=== PATIENT | female | born 1935 | race Hispanic/Latino ===

== ENCOUNTER → 2018-02-21 | Outpatient (CLI) | payer MEDICARE | END | disposition home or self-care (01) | LOC: RAH 08:36 | PROVIDERS: ATTEND Internal Medicine | DX: R07.89 Other chest pain (principal) | CPT/HCPCS: 71046 ==

== ENCOUNTER → 2018-04-06 | Outpatient (CLI) | payer MEDICARE | END | disposition home or self-care (01) | LOC: RAH 13:37 | PROVIDERS: ATTEND Internal Medicine | DX: E04.1 Nontoxic single thyroid nodule (principal) | CPT/HCPCS: 76536 ==

== ENCOUNTER → 2019-01-25 | Outpatient (CLI) | payer MEDICARE | END | disposition home or self-care (01) | LOC: RAH 10:31 | PROVIDERS: ATTEND Internal Medicine | DX: J84.10 Pulmonary fibrosis, unspecified (principal); M47.815 Spondylosis without myelopathy or radiculopathy, thoracolumbar region; Z96.89 Presence of other specified functional implants; Z98.890 Other specified postprocedural states | CPT/HCPCS: 71046 ==

== ENCOUNTER → 2019-03-20 | Outpatient (CLI) | payer MEDICARE | END | disposition home or self-care (01) | LOC: RAH 13:20 | PROVIDERS: ATTEND Clinical Nurse Specialist Family Health | DX: M41.9 Scoliosis, unspecified (principal); M19.90 Unspecified osteoarthritis, unspecified site | CPT/HCPCS: 71100 ==

== ENCOUNTER → 2022-04-20 | Outpatient (CLI) | payer OTHER | END | disposition home or self-care (01) | LOC: SHCH 07:57 | PROVIDERS: ATTEND Internal Medicine Cardiovascular Disease | DX: I08.0 Rheumatic disorders of both mitral and aortic valves (principal) | CPT/HCPCS: 93306 ==

== ENCOUNTER → 2022-05-20 | Outpatient (CLI) | payer OTHER | END | disposition home or self-care (01) | LOC: SHCH 08:46 | PROVIDERS: ATTEND Internal Medicine Cardiovascular Disease | DX: I70.202 Unspecified atherosclerosis of native arteries of extremities, left leg (principal); I25.5 Ischemic cardiomyopathy; I65.23 Occlusion and stenosis of bilateral carotid arteries; Z95.828 Presence of other vascular implants and grafts; Z89.611 Acquired absence of right leg above knee | CPT/HCPCS: 93880; 93925 ==

== ENCOUNTER → 2022-07-16 | Outpatient (CLI) | payer OTHER | END | disposition home or self-care (01) | LOC: RAH 16:08 | PROVIDERS: ATTEND Internal Medicine | DX: S22.32XA Fracture of one rib, left side, initial encounter for closed fracture (principal); R07.81 Pleurodynia; X58.XXXA Exposure to other specified factors, initial encounter; Y93.89 Activity, other specified; Y92.89 Other specified places as the place of occurrence of the external cause; Y99.8 Other external cause status | CPT/HCPCS: 71110 ==

== ENCOUNTER → 2023-04-08 | Outpatient (CLI) | payer OTHER ==
[~2023-04-08] MED LIST: REGADENOSON 0.4 MG/5 ML PF SYG IVP ONE
== END | disposition home or self-care (01) ==
LOC: SHCH 07:50
PROVIDERS: ATTEND Internal Medicine Cardiovascular Disease
DX: R07.9 Chest pain, unspecified (principal); I51.7 Cardiomegaly
CPT/HCPCS: 78452; 96374; 93017; J2785; A9500 ×2

== ENCOUNTER 2023-05-23 07:17 | Day surgery (SDC) | payer OTHER ==
[2023-05-20 10:16] LABS: BASOPHILS # (AUTO) 0.05 K/uL (0.00-0.20); BASOPHILS % (AUTO) 0.5 % (0.0-5.0); EOSINOPHILS % (AUTO) 3.8 % (0.0-8.0); HEMATOCRIT 40.9 % (36-48); LYMPHOCYTES # (AUTO) 2.8 K/uL (1.0-4.8); LYMPHOCYTES % (AUTO) 26.1 % (21.0-51.0); MEAN CORPUSCULAR HGB CONC 32.8 g/dL (32.0-36.0); MEAN CORPUSCULAR VOLUME 91.7 fL (79-99); MONOCYTES # (AUTO) 1.3 K/uL (0.1-1.0); MONOCYTES % (AUTO) 12.1 % (3.0-13.0); NEUTROPHILS % (AUTO) 56.5 % (40.0-77.0); PLATELET COUNT (AUTO) 234 K/uL (130-400); RED BLOOD CELL COUNT(AUTO) 4.46 MIL/uL (4.00-5.50); RED CELL DISTRIBUTION WIDTH 15.2 % (11.0-15.5); WHITE BLOOD COUNT (AUTO) 10.5 K/uL (4.8-10.8)
[2023-05-20 10:25] LABS: CREATININE 0.6 mg/dL (0.5-1.5); POTASSIUM 4.5 mmol/L (3.5-5.1)
[2023-05-20 10:26] LABS: INR 0.95 (0.85-1.15); PROTHROMBIN TIME 11.1 SEC (9.6-11.6)
[2023-05-20 10:28] LABS: PARTIAL THROMBOPLASTIN TIME 29.9 SEC (26.3-35.5)
[2023-05-20 10:35] VITALS: BP_SYST 140; BP_SYST 202; BP_SYST 212; BP_DIAS 64; BP_DIAS 79; PULSE 67; RESP 18
[2023-05-20 10:39] LABS: BILIRUBIN,URINE NEGATIVE (NEGATIVE); COLOR,URINE YELLOW (YELLOW); GLUCOSE, URINE (UA) NEGATIVE (NEGATIVE); KETONES,URINE NEGATIVE (NEGATIVE); LEUKOCYTE ESTERASE ,URINE NEGATIVE Leu/uL (NEGATIVE); NITRATE,URINE NEGATIVE (NEGATIVE); OCCULT BLOOD,URINE NEGATIVE (NEGATIVE); PH,URINE 7.5 (5.0-8.0); PROTEIN,URINE NEGATIVE (NEGATIVE); UROBILINOGEN,URINE 0.2 mg/dL (0.2-1.0)
[2023-05-20 10:42] LABS: ADD UA MICROSCOPIC NO; APPEARANCE,URINE A (CLEAR)
[2023-05-20 10:51] LABS: B-TYPE NATRIURETIC PEPTIDE 104 pg/mL (0-100)
[~2023-05-23] VITALS: Ht 157.5 cm; Wt 63.0 kg
[2023-05-23] VITALS (11 sets, daily range): BP systolic 131–173; BP diastolic 54–75; PULSE 60–86; RESP 9–18
[~2023-05-23 07:17] MED LIST changes: +ALBU6.7H14 IH; +ASPI-1197 PO; +ATOR40TA71 PO; +BIOT5000 PO; +CARV25TA PO; +CHOL500051 PO; +CITRACAL PO; +CLOP75TA32 PO; +FOLIC ACID PO; +GABA-529 PO; +LOSA50TA64 PO; +MAGN500C4 PO; +MONT-39 PO; -REGADENOSON 0.4 MG/5 ML PF SYG IVP ONE; +SPIR25TA6 PO; +VITA-348 PO
[2023-05-23] MEDS: 0.9%NACL 1000ML 1,000 ML IV ONE (08:01)
[2023-05-23] MEDS ORDERED: LIDOCAINE HCL 400MG/20ML VIAL ONE (10:54)
[2023-05-23] MEDS ORDERED: MEPERIDINE-PF 25 MG/ML SYG ONE (10:54)
[2023-05-23] MEDS ORDERED: MIDAZOLAM HCL 1 MG/ML 2ML VIAL ONE (10:55)
[2023-05-23] MEDS ORDERED: HEPARIN 10,000 UNIT/10ML (1,000 UNIT/ML) VIAL ONE (10:55)
[2023-05-23] MEDS ORDERED: IOHEXOL 350 MG/ML 100ML INFUS..BTL IV ONE (10:55)
[2023-05-23] MEDS ORDERED: SODIUM BICARB 50MEQ 50ML VIAL 50 ML ONE (11:07)
[2023-05-23] MEDS ORDERED: 0.9%NACL 1000ML 1,000 ML IV SCH (13:00)
== END 2023-05-23 18:15 | disposition home or self-care (01) ==
LOC: DAH 07:17
PROVIDERS: ATTEND Internal Medicine Cardiovascular Disease
DX: I25.119 Atherosclerotic heart disease of native coronary artery with unspecified angina pectoris (principal); I25.82 Chronic total occlusion of coronary artery; I65.22 Occlusion and stenosis of left carotid artery; T82.858A Stenosis of other vascular prosthetic devices, implants and grafts, initial encounter; I70.8 Atherosclerosis of other arteries; E78.5 Hyperlipidemia, unspecified; I73.9 Peripheral vascular disease, unspecified; I11.0 Hypertensive heart disease with heart failure; I50.42 Chronic combined systolic (congestive) and diastolic (congestive) heart failure; Z79.01 Long term (current) use of anticoagulants; Z79.899 Other long term (current) drug therapy; Z79.82 Long term (current) use of aspirin; Z95.5 Presence of coronary angioplasty implant and graft; Z98.890 Other specified postprocedural states; Z88.6 Allergy status to analgesic agent; Y83.8 Other surgical procedures as the cause of abnormal reaction of the patient, or of later complication, without mention of misadventure at the time of the procedure
CPT/HCPCS: 80048; 83880; 85025; 85610; 85730; 81003; 36415; 71045; 93005; 93459; 36222; 36225; C1769; C1894 ×2; C1760; Q9965; J3490 ×2; J7030; J2250; J2175; J1644; Q9967; A4215; A4335; A4222; A4221; A4663; A4216; A4606; A4223 ×3; 96360; 96361; 99156; 99157

== ENCOUNTER → 2023-08-01 | Outpatient (CLI) | payer OTHER | END | disposition home or self-care (01) | LOC: RAH 08:01 | PROVIDERS: ATTEND Internal Medicine | DX: I65.23 Occlusion and stenosis of bilateral carotid arteries (principal); I25.9 Chronic ischemic heart disease, unspecified | CPT/HCPCS: 93880 ==

== ENCOUNTER → 2024-04-25 | Outpatient (CLI) | payer OTHER ==
--- NOTE | 2024-04-26 08:06 | HMCSR ---
APPROVED REPORT EXAM: Two-dimensional and M-mode echocardiogram with Doppler and color Doppler. INDICATION ICD: I10.0 Essential (primary) Hypertension 2D Dimensions RVDd2.7 cmLVEF(%)50.0 (>50%)LVED Vol(simp.)51.0 mL IVSd1.4 (0.7-1.1cm)FS(%)26 %LVES Vol(simp.)26.0 mL LVDd3.4 (3.8-5.6cm)Ao Root(2D)2.9 (2.0-3.7cm)LVEF(%, simp.)50 % PWd1.0 (0.7-1.1cm)LVOT diam2.2 (1.8-2.4cm)LA ESV INDEX (BP)28.32 mL/m2 LVDs2.5 (2.5-4.0cm)IVC diam1.9 cm Aortic Valve AoV Vmax1.6 m/Leanna Peak GR10.7 mmHgLVOT Vmax0.7 m/s AoV VTI0.4 mAo Mean GR5.6 mmHgLVOT VTI0.16 m GALI (VMAX)1.5 cm2AVA (VTI) 1.5 cm2 Mitral Valve MV E Vmax84.2 cm/sDECEL Whqv848 msMV Peak GR11 mmHg MV A Oenc383.3 cm/sP 1/2 T136 msMV Mean GR4 mmHg E/A ratio0.6MVA (PHT)1.6 cm2MVA (VTI)1.3 cm2 MR Max PG127 mmHg TDI E/E' Sccshx67.2E/E' Rxgedry43.8 Pulmonary Valve PV Vmax0.7 m/sPV VTI0.18 mPV Mean GR1 mmHg PV Peak GR2.1 mmHg Tricuspid Valve TR Vmax2.6 m/sRAP (EST) 8 pbCyIJPY30.3 mmHg TR Peak GR27.3 mmHg Left Ventricle Left ventricular cavity is small. There is moderate asymmetric left ventricular hypertrophy, with a s igmoid septum. No outflow tract gradient. LVEF is 50%. No left ventricle thrombus noted on this study . Grade 1 diastolic dysfunction. Right Ventricle The right ventricle is normal size. Right ventricular systolic function is borderline reduced. Atria The left atrium size is normal. The right atrium size is normal. Aortic Valve Aortic valve is trileaflet. Aortic valve is mildly calcified. Trace aortic regurgitation. AV Dimensio nless Index is 0.38 Calculated aortic valve area is 1.5 cm2 with maximum pressure gradient of 10.7 mm Hg and mean pressure gradient of 5.6 mmHg. Mitral Valve Mitral valve leaflets are mildly calcified. Mitral annular calcification is mild. Mitral regurgitatio n is moderate. Calculated mitral valve area is 1.3 cm2 with maximum pressure gradient of 11.1 mmHg an d mean pressure gradient of 3.7 mmHg. Tricuspid Valve The tricuspid valve leaflets appear normal. There is mild to moderate tricuspid regurgitation. Right ventricular systolic pressure is estimated at 30-40 mmHg. Pulmonic Valve Pulmonic valve is not well visualized. There is trace pulmonic valvular regurgitation. Great Vessels The aortic root is normal in size. IVC is dilated and collapses >50% with inspiration. Pericardium No pericardial effusion. Conclusion Left ventricular cavity is small. There is moderate asymmetric left ventricular hypertrophy, with a sigmoid septum. No outflow tract gradient. LVEF is 50%. Grade 1 diastolic dysfunction. The right ventricle is normal size. Right ventricular systolic function is borderline reduced. The left atrium size is normal. Aortic valve is trileaflet. Aortic valve is mildly calcified. Trace aortic regurgitation. Calculated aortic valve area is 1.5 cm2 with maximum pressure gradient of 10.7 mmHg and mean pressure gradient of 5.6 mmHg. Mitral valve leaflets are mildly calcified. Mitral annular calcification is mild. Mitral regurgitation is moderate. Calculated mitral valve area is 1.3 cm2 with maximum pressure gradient of 11.1 mmHg and mean pressure gradient of 3.7 mmHg. There is mild to moderate tricuspid regurgitation. Right ventricular systolic pressure is estimated at 30-40 mmHg. The aortic root is normal in size. IVC is dilated and collapses >50% with inspiration. No pericardial effusion.
== END | disposition home or self-care (01) ==
LOC: SHCH 08:33
PROVIDERS: ATTEND Internal Medicine Cardiovascular Disease
DX: I08.3 Combined rheumatic disorders of mitral, aortic and tricuspid valves (principal); I10 Essential (primary) hypertension
CPT/HCPCS: 93306

== ENCOUNTER → 2024-07-31 | Outpatient (CLI) | payer OTHER ==
--- NOTE | 2024-07-31 12:24 | HMCIMG ---
CHEST 2VWS HISTORY: Pulmonary disease COMPARISON: 05/20/2023 FINDINGS: Frontal and lateral projections of the chest were obtained. There is no acute pulmonary infiltrates or failure. The heart is not enlarged. No evidence of aortic calcification is seen. Poststernotomy changes are seen. Pacemaker is seen entering from the right. Port-A-Cath is seen entering from the left. Degenerative changes are seen of the thoracolumbar spine. IMPRESSION: 1. No acute pulmonary infiltrates.
== END | disposition home or self-care (01) ==
LOC: RAH 10:39
PROVIDERS: ATTEND Internal Medicine
DX: J84.89 Other specified interstitial pulmonary diseases (principal); M47.815 Spondylosis without myelopathy or radiculopathy, thoracolumbar region; Z95.0 Presence of cardiac pacemaker; Z95.1 Presence of aortocoronary bypass graft; Z45.2 Encounter for adjustment and management of vascular access device
CPT/HCPCS: 71046